=== PATIENT | female | born 1990 | race Caucasian/White ===

== ENCOUNTER → 2021-09-26 08:18 | Outpatient (CLI) | payer OTHER, SELFPAY ==
--- NOTE | ~2021-09-26 | MR_ITS ---
EXAMINATION: MR knee RT wo con DATE: 09/26/2021 08:57 INDICATION: 2 months of anterior and medial right knee pain after running TECHNIQUE: Magnetic resonance imaging (MRI) of the right knee was performed without intravenous contr ast. Sequences included coronal PD-weighted FSE, coronal PD-weighted FS FSE, sagittal T2-weighted FS E, sagittal PD-weighted FS FSE and axial PD weighted fat saturated FSE. COMPARISON: None. FINDINGS: Medial compartment: Medial meniscus is normal. Articular cartilage is normal. Lateral compartment: Partially discoid lateral meniscus measuring 1.6 cm medial collateral at the meniscal body. This is o therwise normal in appearance with no meniscal tear. Articular cartilage is normal. Patellofemoral compartment: Partial-thickness chondral ulceration along the inferior aspect of the medial trochlea without degene rative subchondral changes. Ligaments and tendons: Anterior and posterior cruciate ligaments are normal. The medial collateral ligament and fibular osmar ateral ligament complex are normal. The extensor mechanism is normal. The visualized medial and later al hamstring tendons as well as the iliotibial band are normal. Fluid: Physiologic amount of fluid in the joint space. No loose osteochondral bodies identified. Osseous/other: Normal marrow signal. No fracture or pathologic marrow replacing process. IMPRESSION: 1. Small region of partial-thickness chondral ulceration at the inferior aspect of the medial trochle a. 2. Partially discoid lateral meniscus with otherwise normal appearance with no clear. Reviewed, dictated and finalized at location A. IMPRESSION: 1. Small region of partial-thickness chondral ulceration at the inferior aspect of the medial trochlea. 2. Partially discoid lateral meniscus with otherwise normal appearance with no clear.
== END ==
PROVIDERS: PCP Orthopaedic Surgery; Visit Provider Orthopaedic Surgery
DX: M94.8X6 Other specified disorders of cartilage, lower leg (principal)
CPT/HCPCS: 73721